=== PATIENT | male | born 1960 | race Caucasian/White ===

== ENCOUNTER 2024-05-28 16:06 | Inpatient (IN) | payer OTHER ==
[2024-05-28 17:02] LABS: #Basophils 0.05 10x3/uL (0.0-0.2); #Eosinophils 0.25 10x3/uL (0.0-0.5); #Monocytes 0.42 10x3/uL (0.0-1.1); #Neutrophils 5.72 10x3/uL (1.5-8.4); %Basophils 0.6 % (0.0-2.0); %Eosinophils 3.2 % (0.0-6.0); %Lymphocytes 17.8 % (18.0-47.0); %Monocytes 5.3 % (0.0-10.0); %Neutrophils 72.7 % (40.0-75.0); ALT (SGPT) 15 U/L (8-55); AST (SGOT) 11 U/L (5-34); Albumin 3.6 g/dL (3.4-4.8); Alkaline Phosphatase 108 U/L (40-110); Anion Gap 13 mmol/L (10-20); BUN (Urea Nitrogen) 17 mg/dL (8.4-25.7); Bilirubin, Total 1.3 mg/dL (0.2-1.2); Calc. Creatinine Clearance 0 mL/min (70-130); Carbon Dioxide 30 mmol/L (23-31); Chloride 102 mmol/L (98-107); Estimated GFR 95; Globulin 2.7 g/dL (2.4-3.5); Glucose 125 mg/dL (80-115); Hemoglobin 13.5 g/dL (13.5-17.5); Mean Corpuscular HGB CONC 31.4 g/dL (32.0-36.0); Mean Corpuscular Hemoglobin 28.7 pg (27.0-33.0); Mean Corpuscular Volume 91.5 fL (81.2-95.1); Mean Platelet Volume 9.3 fL (7.4-10.4); Platelet Count 177 10x3/uL (150-450); Potassium 4.1 mmol/L (3.5-5.1); Protein, Total 6.3 g/dL (5.8-8.1); RBC Distribution Width 12.8 % (11.5-14.5); Sodium 141 mmol/L (136-145); Troponin I Less than 0.010 ng/mL (< 0.028); White Blood Cell (WBC) Count 7.9 10x3/uL (3.5-10.5)
[2024-05-28] MEDS ORDERED: Ipratropium Bromide 2.5 ml Neb ONE (18:31)
[2024-05-28] MEDS ORDERED: Albuterol 2.5 MG (3 mL) NEB ONE (18:31)
[2024-05-28 18:52] LABS: Actual Bicarbonate (HCO3v) 33.3 mEq/L (22-28); Analyzer IN Cardio CS ER; Calcium, Ionized (venous) 1.11 mmol/L (1.16-1.32); Chloride (VBG) 98 mmol/L (98-106); Critical Notified By: CP.PH; Critical Notified Whom: NUR.PA; Hematocrit-VBG 46 % (42.0-52.0); Hemoglobin (Hb) 15.6 g/dL (12.6-17.4); Potassium (VBG) 4.18 mmol/L (3.70-5.30); Puncture Site Other Site; RapidComm Collect By NUR.PA; Sodium 141 mmol/L (133-146); pH (venous) 7.372 (7.32-7.43)
[2024-05-28 19:35] LABS: Troponin I Less than 0.010 ng/mL (< 0.028)
[2024-05-28] MEDS ORDERED: Ondansetron PF 4 MG/2 ML Vial IVP PRN (20:49)
[2024-05-28] MEDS ORDERED: Ondansetron ODT 4 MG TAB PO PRN (20:49)
[2024-05-28] MEDS ORDERED: traMADol HCl 50 MG TAB PO PRN (20:49)
[2024-05-28] MEDS ORDERED: Dextrose 50% Abboject 50 ML SYRINGE SLOW IVP PRN (20:58)
[2024-05-28] MEDS ORDERED: Glucagon 1 MG/ML KIT IM PRN (20:58)
[2024-05-28] MEDS ORDERED: Dextrose 5% in Water 1,000 ML IV PRN (20:58)
[2024-05-28] MEDS ORDERED: Famotidine/PF 20 mg/2ml Vial SLOW IVP SCH (21:00)
[2024-05-28] MEDS ORDERED: Famotidine 20 MG TAB PO SCH (21:00)
[2024-05-28 22:56] VITALS: BMI 38.4
[2024-05-28 23:11] LABS: Actual Bicarbonate (HCO3v) 25.9 mEq/L (22-28); Analyzer IN Cardio CS ER; Base Excess 0.2 mEq/L (-2 - +2); Calcium, Ionized (venous) 1.09 mmol/L (1.16-1.32); Chloride (VBG) 97 mmol/L (98-106); Critical Notified By: CP.PH; Hematocrit-VBG 45 % (42.0-52.0); Hemoglobin (Hb) 15.3 g/dL (12.6-17.4); Potassium (VBG) 4.02 mmol/L (3.70-5.30); Puncture Site Other Site; RapidComm Collect By LAB.YY; Sodium 141 mmol/L (133-146); pH (venous) 7.372 (7.32-7.43)
[2024-05-28] MEDS: dilTIAZem 30 MG TAB PO SCH (23:31)
[2024-05-28] MEDS: Terazosin HCl 5 MG CAP PO SCH (23:32)
[2024-05-28] MEDS: Insulin Regular, Human 100 UNIT/ML 10 ML VIAL SC PRN (23:56)
[2024-05-29 04:01] LABS: #Basophils 0.01 10x3/uL (0.0-0.2); #Eosinophils 0.01 10x3/uL (0.0-0.5); #Monocytes 0.12 10x3/uL (0.0-1.1); #Neutrophils 11.77 10x3/uL (1.5-8.4); %Basophils 0.1 % (0.0-2.0); %Eosinophils 0.1 % (0.0-6.0); %Lymphocytes 4.6 % (18.0-47.0); %Neutrophils 93.8 % (40.0-75.0); Hematocrit 46.2 % (38.8-50.0); Hemoglobin 14.4 g/dL (13.5-17.5); Mean Corpuscular HGB CONC 31.2 g/dL (32.0-36.0); Mean Corpuscular Hemoglobin 28.2 pg (27.0-33.0); Mean Corpuscular Volume 90.4 fL (81.2-95.1); Mean Platelet Volume 9.6 fL (7.4-10.4); Platelet Count 203 10x3/uL (150-450); RBC Distribution Width 12.8 % (11.5-14.5); Red Blood Cell (RBC) Count 5.11 10x6/uL (4.32-5.72); White Blood Cell (WBC) Count 12.5 10x3/uL (3.5-10.5)
[2024-05-29 04:17] LABS: ALT (SGPT) 16 U/L (8-55); AST (SGOT) 11 U/L (5-34); Albumin 3.8 g/dL (3.4-4.8); Alkaline Phosphatase 109 U/L (40-110); Anion Gap 17 mmol/L (10-20); BUN (Urea Nitrogen) 21 mg/dL (8.4-25.7); Bilirubin, Total 1.6 mg/dL (0.2-1.2); Calc. Creatinine Clearance 121 mL/min (70-130); Calcium 9.6 mg/dL (7.8-10.44); Carbon Dioxide 26 mmol/L (23-31); Chloride 100 mmol/L (98-107); Estimated GFR 91; Globulin 3.3 g/dL (2.4-3.5); Glucose 238 mg/dL (80-115); Potassium 4.2 mmol/L (3.5-5.1); Protein, Total 7.1 g/dL (5.8-8.1); Sodium 139 mmol/L (136-145)
[2024-05-29] MEDS: Mometasone 200 MCG/Formoterol 5 MCG 60 PUFF INHALER INH SCH (07:17)
[2024-05-29] MEDS: Arformoterol 15 MCG/2 ML NEB NEB SCH (07:17)
[2024-05-29] MEDS: Budesonide 0.5 MG/2 ML NEB INH SCH (07:17)
[2024-05-29] MEDS ORDERED: dilTIAZem 30 MG TAB PO SCH (07:30)
[2024-05-29] MEDS: Lisinopril 5 MG TAB PO SCH (08:19)
[2024-05-29] MEDS: Azithromycin 250 MG TAB PO SCH (08:19)
[2024-05-29] MEDS: Terazosin HCl 5 MG CAP PO SCH (08:19)
[2024-05-29] MEDS: Furosemide 40 MG TAB PO SCH (08:19)
[2024-05-29] MEDS: Oxybutynin 5 MG TAB PO SCH (08:19)
[2024-05-29] MEDS: dilTIAZem 30 MG TAB PO SCH (08:20)
[2024-05-29] MEDS: Enoxaparin 40 MG (0.4 mL) SYRINGE SC SCH (08:20)
[2024-05-29] MEDS: Aspirin 81 mg Enteric Coated Tablet PO SCH (08:20)
[2024-05-29] MEDS: Pantoprazole DR 40 MG TAB PO SCH (08:20)
[2024-05-29] MEDS: methylPREDNISolone Sod Succ 40 MG VIAL IVP SCH ×2 (08:21→14:28)
[2024-05-29] MEDS: Magnesium 2 GM/50 ML(in water) 2 GM in Premix 1 BAG IVPB SCH (12:50)
[2024-05-29] MEDS: Insulin Regular, Human 100 UNIT/ML 10 ML VIAL SC PRN (13:24)
[2024-05-29] MEDS ORDERED: Furosemide 20 MG (2 mL) VIAL SLOW IVP SCH (14:00)
[2024-05-29] MEDS: Ipratropium/Albuterol 3 ML NEB NEB SCH (17:30)
[2024-05-29] MEDS ORDERED: Terazosin HCl 5 MG CAP PO SCH (21:00)
[2024-05-29] MEDS: guaiFENesin ER 600 MG TAB PO SCH (21:56)
[2024-05-30] MEDS: Ipratropium/Albuterol 3 ML NEB NEB PRN (01:20)
[2024-05-30 04:43] LABS: Magnesium 2.6 mg/dL (1.6-2.6)
[2024-05-30 05:04] VITALS: TEMP 97.6
[2024-05-30] MEDS: Acetaminophen 325 MG TAB PO PRN (06:06)
[2024-05-30] MEDS: Furosemide 40 MG TAB PO SCH (08:35)
[2024-05-30 14:32] VITALS: BP 110/50
== END 2024-05-30 19:35 | disposition home or self-care (01) | DRG 189 ==
LOC: CSHERS 16:06 → CSHTELE 21:33 → EEVIPCON 21:33
PROVIDERS: ADMIT Internal Medicine; ATTEND Internal Medicine
PROC: 5A09357 Assistance with Respiratory Ventilation, Less than 24 Consecutive Hours, Continuous Positive Airway Pressure (ICD-10-PCS; principal; 2024-05-30)
DX: J96.21 Acute and chronic respiratory failure with hypoxia (principal); J44.1 Chronic obstructive pulmonary disease with (acute) exacerbation; J96.22 Acute and chronic respiratory failure with hypercapnia; E11.65 Type 2 diabetes mellitus with hyperglycemia; E66.9 Obesity, unspecified; G47.33 Obstructive sleep apnea (adult) (pediatric); K21.9 Gastro-esophageal reflux disease without esophagitis; D72.829 Elevated white blood cell count, unspecified; I11.0 Hypertensive heart disease with heart failure; I50.9 Heart failure, unspecified; E78.5 Hyperlipidemia, unspecified; Z68.34 Body mass index [BMI] 34.0-34.9, adult; Z99.81 Dependence on supplemental oxygen; M19.90 Unspecified osteoarthritis, unspecified site; T38.0X5A Adverse effect of glucocorticoids and synthetic analogues, initial encounter
CPT/HCPCS: 36415; 36416; 71045; 80053; 82805; 83735; 83880; 84145; 84484; 85025; 93005; 94640; 94644; 94660; 94760; 94762; J1650; J1815; J2919; J3475; J7611; J7620; J7626; J7644